=== PATIENT | male | born 2000 | race American Indian/Alaskan Native ===

== ENCOUNTER 2018-07-22 20:35 | Emergency (ER) | payer SELFPAY ==
[2018-07-22] MEDS ORDERED: NACL 0.9% 1000 ML 1,000 ML IV ONE ×2 (20:59→22:29)
[2018-07-22] MEDS ORDERED: ZOFRAN ODT PO ONE (21:15)
[2018-07-22] MEDS ORDERED: ZOFRAN ODT ONE (21:22)
[2018-07-22 21:34] LABS: Basophils % (Auto) 0.2 % (0.0-1.8); Eosinophils % (Auto) 0.1 % (0.0-4.3); Hematocrit 48.2 % (35.5-45.6); Hemoglobin 16.4 gm/dl (11.8-15.2); Lymphocytes # (Auto) 1.4 K/mm3 (1.2-5.4); Lymphocytes % (Auto) 17.3 % (13.4-35.0); Mean Corpuscular HGB Conc 34 % (32-34); Mean Corpuscular Hemoglobin 29 pg (28-32); Mean Corpuscular Volume 85 fl (84-94); Monocytes # (Auto) 0.5 K/mm3 (0.0-0.8); Monocytes % (Auto) 6.6 % (0.0-7.3); Platelet Count 308 K/mm3 (140-440); Red Blood Count 5.66 M/mm3 (3.65-5.03); Red Cell Distribution Width 14.4 % (13.2-15.2)
[2018-07-22 21:48] LABS: Alanine Aminotransferase 15 units/L (7-56); Albumin 5.1 g/dL (3.9-5); BUN/Creatinine Ratio 10; Blood Urea Nitrogen 8 mg/dL (9-20); Calcium 10.1 mg/dL (8.4-10.2); Hemolysis Index 83
[2018-07-22] MEDS ORDERED: ZOFRAN IV ONE (22:29)
[2018-07-22] MEDS ORDERED: MORPHINE IV ONE (22:29)
[2018-07-22] MEDS ORDERED: ATIVAN IV ONE (22:29)
[2018-07-22] MEDS ORDERED: BENADRYL IV ONE (22:29)
[2018-07-22] MEDS ORDERED: ZOFRAN ONE (22:32)
[2018-07-23 00:57] VITALS: BP 137/85
--- NOTE | 2018-07-23 03:53 | Emergency Department Report ---
HPI - General Chief Complaint: Abdominal Pain Time Seen by Provider: 07/22/18 22:02 - HPI HPI: The patient is a 18-year-old male presents for evaluation of abdominal pain and nausea and vomiting. The patient reports 1 day of upper abdominal pain, cramping, moderate in severity, exacerbated with retching, associated with nausea, multiple episodes of nonbilious, nonbloody emesis. He also reports associated loose watery stools for blood. The patient denies fever, chills, night sweats, chest pain, dyspnea, blood in the stool, dark tarry stool, dysuria , hematuria, flank pain, genital discharge, inability to pass flatus. ED Past Medical Hx - Past Medical History Hx Seizures: Yes - Surgical History Past Surgical History?: No - Social History Smoking Status: Current Every Day Smoker Substance Use Type: None - Medications Home Medications: Home Medications Medication Instructions Recorded Confirmed Last Taken Type Acetaminophen/Codeine [Tylenol #3] 1 tab PO Q6H PRN #14 tab 07/23/18 Unknown Rx Ondansetron [Zofran TAB] 4 mg PO Q8HR PRN #20 tablet 07/23/18 Unknown Rx ED Review of Systems ROS: Stated complaint: VOMITING BLOOD Other details as noted in HPI Constitutional: denies: fever ENT: denies: throat or neck pain Respiratory: denies: cough, shortness of breath Cardiovascular: denies: chest pain Endocrine: denies unexplained weight loss or gain Gastrointestinal: reports abdominal pain, nausea Genitourinary: denies: dysuria Musculoskeletal: denies: leg swelling Skin: denies: rash Neurological: denies: headache Hematological/Lymphatic: denies: easy bleeding or easy bruising Psych: denies sadness or hopelessness Physical Exam - Physical Exam Vital Signs: Vital Signs 07/22/18 07/22/18 07/22/18 20:49 20:56 21:54 Temperature 98.8 F 98.8 F Pulse Rate 101 H 99 H Respiratory 14 14 14 Rate Blood Pressure 148/87 148/87 Blood Pressure [Left] O2 Sat by Pulse 97 97 94 Oximetry 07/22/18 07/22/18 07/22/18 22:13 22:50 23:20 Temperature 99 F Pulse Rate 89 Respiratory 13 13 16 Rate Blood Pressure Blood Pressure 143/97 [Left] O2 Sat by Pulse 99 Oximetry Physical Exam: General: well-nourished, well-developed, no acute distress Head: Normocephalic, atraumatic Eyes: normal sclera ENT: Mucous membranes are pale and dry Neck: No neck stiffness, no cervical adenopathy Respiratory: Breath sounds equal bilaterally, no wheezing, rales, or rhonchi Cardio: S1 and S2 present, no murmurs, rubs, gallops, capillary refill is delayed Abdomen: Normoactive bowel sounds, soft abdomen, epigastric tenderness palpation present, no rigidity, no guarding or rebound tenderness Musc: No pitting edema Skin: No rash Neuro: no facial drooping, normal speech Psych: Normal affect ED Course Vital Signs 07/22/18 07/22/18 07/22/18 20:49 20:56 21:54 Temperature 98.8 F 98.8 F Pulse Rate 101 H 99 H Respiratory 14 14 14 Rate Blood Pressure 148/87 148/87 Blood Pressure [Left] O2 Sat by Pulse 97 97 94 Oximetry 07/22/18 07/22/18 07/22/18 22:13 22:50 23:20 Temperature 99 F Pulse Rate 89 Respiratory 13 13 16 Rate Blood Pressure Blood Pressure 143/97 [Left] O2 Sat by Pulse 99 Oximetry ED Medical Decision Making - Lab Data Result diagrams: 07/22/18 21:20 07/22/18 21:20 - Medical Decision Making The patient was seen and examined by myself. The patient is placed on a manager cardiac and continuous pulse ox. On initial evaluation, the patient was found to be in no distress. Evaluation orders are placed. IV access is established and the patient is given 1 L normal saline fluid bolus and Zofran for nausea, and IV analgesic for pain Lab results were non-concerning including WBC, hemoglobin, hematocrit, electrolytes, renal function, LFTs, lipase, and urinalysis. The patient was reevaluated and reported that their symptoms were markedly improved. The patient is stable for discharge with outpatient follow-up. The patient is given follow-up and return instructions. The patient expressed understanding and agreed with the plan. The patient is discharged in stable condition. Critical care attestation.: If time is entered above; I have spent that time in minutes in the direct care of this critically ill patient, excluding procedure time. ED Disposition Clinical Impression: Acute generalized abdominal pain, Dehydration, Nausea and vomiting in adult patient Disposition: DC-01 TO HOME OR SELFCARE Is pt being admited?: No Does the pt Need Aspirin: No Condition: Stable Instructions: Gastroenteritis (ED), Acute Nausea and Vomiting (ED), Food Poisoning (ED), Abdominal Pain (ED) Prescriptions: Acetaminophen/Codeine [Tylenol #3] 1 tab PO Q6H PRN #14 tab PRN Reason: Pain Ondansetron [Zofran TAB] 4 mg PO Q8HR PRN #20 tablet PRN Reason: Nausea Referrals: PRIMARY CARE, [Primary Care Provider] - 3-5 Days Time of Disposition: 00:07
== END 2018-07-23 01:05 | disposition home or self-care (01) ==
LOC: ED 20:35
DX: E86.0 Dehydration (principal); R11.2 Nausea with vomiting, unspecified; R10.84 Generalized abdominal pain; F17.200 Nicotine dependence, unspecified, uncomplicated
CPT/HCPCS: 36415; 80053; 85025; 96361; 96374; 96375; 99284; J1200; J2060; J2270; J2405; J7030; Q0162

== ENCOUNTER 2019-03-10 19:38 | Emergency (ER) | payer OTHER ==
--- NOTE | 2019-03-10 20:26 | Emergency Department Report ---
Blank Doc - Documentation Documentation: This is a 18-year-old male that presents with abdominal pain with n/v. This initial assessment/diagnostic orders/clinical plan/treatment(s) is/are subject to change based on patient's health status, clinical progression and re- assessment by fellow clinical providers in the ED. Further treatment and workup at subsequent clinical providers discretion. Patient/guardians urged not to elope from the ED as their condition may be serious if not clinically assessed and managed. Initial orders include: 1- Patient sent to [facility] for further evaluation and treatment 2- labs
[2019-03-10 20:49] LABS: Basophils % (Auto) 0.4 % (0.0-1.8); Eosinophils # (Auto) 0.1 K/mm3 (0.0-0.4); Eosinophils % (Auto) 1.8 % (0.0-4.3); Hematocrit 44.3 % (35.5-45.6); Hemoglobin 15.2 gm/dl (11.8-15.2); Lymphocytes # (Auto) 3.1 K/mm3 (1.2-5.4); Lymphocytes % (Auto) 51.2 % (13.4-35.0); Mean Corpuscular HGB Conc 34 % (32-34); Mean Corpuscular Volume 88 fl (84-94); Monocytes # (Auto) 0.7 K/mm3 (0.0-0.8); Monocytes % (Auto) 11.4 % (0.0-7.3); Platelet Count 278 K/mm3 (140-440); Red Blood Count 5.07 M/mm3 (3.65-5.03); Red Cell Distribution Width 14.1 % (13.2-15.2)
[2019-03-10 21:04] LABS: Alanine Aminotransferase 16 units/L (7-56); Albumin 4.4 g/dL (3.9-5); BUN/Creatinine Ratio 12; Blood Urea Nitrogen 11 mg/dL (9-20); Calcium 9.6 mg/dL (8.4-10.2); Hemolysis Index 11
[2019-03-10 21:05] LABS: Bilirubin,Direct < 0.2 mg/dL (0-0.2)
[2019-03-10 21:16] LABS: Bacteria,Urine 1+ /HPF (Negative); Bilirubin,Urine NEG (Negative); Blood,Urine SM (Negative); Color,Urine Yellow (Yellow); Mucus,Urine FEW /HPF; Protein,Urine <15 mg/dL mg/dL (Negative)
[2019-03-10 21:18] LABS: WBC,Urine > 182.0 /HPF (0.0-6.0)
[2019-03-10] MEDS ORDERED: XYLOCAINE 1% MPF 5 mL INFILTRATI ONE (23:57)
[2019-03-10] MEDS ORDERED: ROCEPHIN IM ONE (23:57)
[2019-03-10] MEDS ORDERED: ZITHROMAX PO ONE (23:57)
--- NOTE | 2019-03-11 00:30 | Emergency Department Report ---
ED Male HPI - General Chief complaint: Abdominal Pain Stated complaint: ABD PAIN Time Seen by Provider: 03/10/19 20:25 Source: patient Mode of arrival: Ambulatory Limitations: No Limitations - History of Present Illness Initial comments: Patient is a 18 y/o aam male who presents for urinary frequency urgency and dysuria states some abdominal pain no n/v no diarrhea no blood stools no fever or chills MD Complaint: dysuria Onset/Timin -: days(s) Location: penis Radiation: none Severity: moderate Severity scale (0 -10): 5 Quality: burning Consistency: intermittent Worsens with: urination discharge, dysuria - Related Data Sexually active: Yes Previous Rx's Medication Instructions Recorded Last Taken Type Acetaminophen/Codeine [Tylenol #3] 1 tab PO Q6H PRN #14 tab 07/23/18 Unknown Rx Ondansetron [Zofran TAB] 4 mg PO Q8HR PRN #20 tablet 07/23/18 Unknown Rx Doxycycline [Vibramycin CAP] 100 mg PO BID 10 Days #20 capsule 03/11/19 Unknown Rx Famotidine [Pepcid] 20 mg PO BID #60 tablet 03/11/19 Unknown Rx Allergies Allergy/AdvReac Type Severity Reaction Status Date / Time No Known Allergies Allergy Verified 07/22/18 21:28 ED Review of Systems ROS: Stated complaint: ABD PAIN Other details as noted in HPI Constitutional: denies: chills, fever Eyes: denies: eye pain, eye discharge, vision change ENT: denies: ear pain, throat pain Respiratory: denies: cough, shortness of breath, wheezing Cardiovascular: denies: chest pain, palpitations Endocrine: no symptoms reported Gastrointestinal: abdominal pain Genitourinary: urgency, dysuria, frequency, discharge. denies: testicular pain, testicular mass Musculoskeletal: denies: back pain, joint swelling, arthralgia Skin: denies: rash, lesions Neurological: denies: headache, weakness, paresthesias Psychiatric: denies: anxiety, depression Hematological/Lymphatic: denies: easy bleeding, easy bruising ED Past Medical Hx - Past Medical History Previous Medical History?: Yes Hx Seizures: Yes - Surgical History Past Surgical History?: No - Social History Smoking Status: Current Every Day Smoker Substance Use Type: Marijuana - Medications Home Medications: Home Medications Medication Instructions Recorded Confirmed Last Taken Type Acetaminophen/Codeine [Tylenol #3] 1 tab PO Q6H PRN #14 tab 07/23/18 Unknown Rx Ondansetron [Zofran TAB] 4 mg PO Q8HR PRN #20 tablet 07/23/18 Unknown Rx Doxycycline [Vibramycin CAP] 100 mg PO BID 10 Days #20 capsule 03/11/19 Unknown Rx Famotidine [Pepcid] 20 mg PO BID #60 tablet 03/11/19 Unknown Rx ED Physical Exam - General Limitations: No Limitations General appearance: alert, in no apparent distress - Head Head exam: Present: atraumatic, normocephalic - Eye Eye exam: Present: normal appearance, PERRL, EOMI Pupils: Present: normal accommodation - ENT ENT exam: Present: mucous membranes moist - Neck Neck exam: Present: normal inspection - Respiratory Respiratory exam: Present: normal lung sounds bilaterally. Absent: respiratory distress - Cardiovascular Cardiovascular Exam: Present: regular rate, normal rhythm. Absent: systolic murmur, diastolic murmur, rubs, gallop - GI/Abdominal GI/Abdominal exam: Present: soft, normal bowel sounds. Absent: distended, tend erness, guarding, rebound, rigid, bruit, hernia - Rectal Rectal exam: Present: deferred - Extremities Exam Extremities exam: Present: normal inspection, tenderness, normal capillary refill - Back Exam Back exam: Present: normal inspection, full ROM. Absent: tenderness, CVA tenderness (R), CVA tenderness (L), muscle spasm, rash noted - Neurological Exam Neurological exam: Present: alert, oriented X3, CN II-XII intact, normal gait - Psychiatric Psychiatric exam: Present: normal affect, normal mood - Skin Skin exam: Present: warm, dry, intact, normal color. Absent: rash ED Course Vital Signs 03/10/19 20:26 Temperature 98.4 F Pulse Rate 70 Respiratory 18 Rate Blood Pressure 119/57 O2 Sat by Pulse 95 Oximetry ED Medical Decision Making - Lab Data Result diagrams: 03/10/19 20:34 03/10/19 20:34 Labs 03/10/19 03/10/19 03/10/19 20:34 20:34 20:51 WBC 6.0 RBC 5.07 H Hgb 15.2 Hct 44.3 MCV 88 MCH 30 MCHC 34 RDW 14.1 Plt Count 278 Lymph % (Auto) 51.2 H Howard % (Auto) 11.4 H Eos % (Auto) 1.8 Baso % (Auto) 0.4 Lymph # 3.1 Howard # 0.7 Eos # 0.1 Baso # 0.0 Seg Neutrophils % 35.2 L Seg Neutrophils # 2.1 Sodium 141 Potassium 4.0 Chloride 101.0 Carbon Dioxide 30 Anion Gap 14 BUN 11 Creatinine 0.9 Estimated GFR > 60 BUN/Creatinine Ratio 12 Glucose 120 H Calcium 9.6 Total Bilirubin 0.40 Direct Bilirubin < 0.2 Indirect Bilirubin 0.2 AST 24 ALT 16 Alkaline Phosphatase 69 Total Protein 7.3 Albumin 4.4 Albumin/Globulin Ratio 1.5 Lipase 20 Urine Color Yellow Urine Turbidity Slightly-cloudy Urine pH 5.0 Ur Specific [place] 1.031 H Urine Protein <15 mg/dl Urine Glucose (UA) Neg Urine Ketones Neg Urine Blood Sm Urine Nitrite Neg Urine Bilirubin Neg Urine Urobilinogen 4.0 Ur Leukocyte Esterase Lg Urine WBC (Auto) > 182.0 H Urine RBC (Auto) 4.0 Urine Bacteria (Auto) 1+ Urine Mucus Few - Medical Decision Making Urine noted for leukocytes white blood cells this is a UTI and likely STD pt treated for same rocephin, azithromycin, dc to home with rx for doxcycline , and pepcid for GERD pt will follow up with health departement for HSV and HIV screening, follow up with pcp for GERD management, pt verbalized agreement and understanding of discharge plan. this is not a colitis flare pt is tolerating po intake no blood stools no fever no abd tenderness no pain on exam. Critical care attestation.: If time is entered above; I have spent that time in minutes in the direct care of this critically ill patient, excluding procedure time. ED Disposition Clinical Impression: STD (male) UTI (urinary tract infection) Qualifiers: Urinary tract infection type: acute cystitis Hematuria presence: without hematuria Qualified Code(s): N30.00 - Acute cystitis without hematuria Disposition: DC-01 TO HOME OR SELFCARE Is pt being admited?: No Does the pt Need Aspirin: No Condition: Stable Instructions: Sexually Transmitted Diseases (ED), Abdominal Pain (ED) Prescriptions: Famotidine [Pepcid] 20 mg PO BID #60 tablet Doxycycline [Vibramycin CAP] 100 mg PO BID 10 Days #20 capsule Referrals: [facility] [Outside] - 3-5 Days Forms: Work/School Release Form(ED) Time of Disposition: 00:42
[2019-03-11 00:54] VITALS: BP 138/92
== END 2019-03-11 00:53 | disposition home or self-care (01) ==
LOC: ED 19:38
DX: N30.00 Acute cystitis without hematuria (principal); A64 Unspecified sexually transmitted disease; F17.200 Nicotine dependence, unspecified, uncomplicated; F12.10 Cannabis abuse, uncomplicated; Z79.899 Other long term (current) drug therapy
CPT/HCPCS: 36415; 80048; 80076; 81001; 83690; 85025; 96372; 99283; J0696

== ENCOUNTER 2019-08-01 03:38 | Emergency (ER) | payer SELFPAY ==
[2019-08-01] MEDS ORDERED: MORPHINE IV ONE (03:58)
[2019-08-01] MEDS ORDERED: XYLOCAINE 1% 20 mL INFILTRATI ONE (03:58)
[2019-08-01] MEDS ORDERED: TORADOL IV ONE (03:58)
--- NOTE | 2019-08-01 04:53 | XRay Report ---
RIGHT SHOULDER 3 VIEWS INDICATION / CLINICAL INFORMATION: probable dislocation. COMPARISON: None available. FINDINGS: Humeral head is dislocated anteriorly with respect to glenoid. Post reduction films are recommended. Signer Name: Johny Douglas MD Signed: 08/01/2019 4:49 AM Workstation Name: [id number]
--- NOTE | 2019-08-01 05:21 | Emergency Department Report ---
ED Extremity Problem HPI - General Chief complaint: Extremity Injury, Upper Stated complaint: DISLOCATED SHOULDER Time Seen by Provider: 08/01/19 03:58 Source: EMS Mode of arrival: Stretcher Limitations: Physical Limitation - History of Present Illness Initial comments: Patient is a 19-year-old -[place] male who suffered a shoulder injury prior to arrival. Patient states he got home after leaving a libertarian and he slipped and fell. Patient now has pain at the right shoulder is worse with movement better with rest. Patient feels as though his shoulder dislocated which has happened before. Patient's pain is 8 out of 10 in severity. Severity scale (0 -10): 10 - Related Data Previous Rx's Medication Instructions Recorded Last Taken Type Acetaminophen/Codeine [Tylenol #3] 1 tab PO Q6H PRN #14 tab 07/23/18 Unknown Rx Ondansetron [Zofran TAB] 4 mg PO Q8HR PRN #20 tablet 07/23/18 Unknown Rx DOXYCYCLINE Hyclate [Vibramycin 100 mg PO BID 10 Days #20 capsule 03/11/19 Unknown Rx CAP] Famotidine [Pepcid] 20 mg PO BID #60 tablet 03/11/19 Unknown Rx Ibuprofen [Motrin 800 MG tab] 800 mg PO Q8HR PRN #10 tablet 08/01/19 Unknown Rx methOCARBAMOL [Robaxin TAB] 500 mg PO Q6H PRN #14 tablet 08/01/19 Unknown Rx traMADol [Ultram] 50 mg PO Q6HR PRN #12 tablet 08/01/19 Unknown Rx Allergies Allergy/AdvReac Type Severity Reaction Status Date / Time No Known Allergies Allergy Verified 07/22/18 21:28 ED Review of Systems ROS: Stated complaint: DISLOCATED SHOULDER Other details as noted in HPI Comment: All other systems reviewed and negative ED Past Medical Hx - Past Medical History Hx Seizures: Yes - Surgical History Past Surgical History?: No - Social History Smoking Status: Current Every Day Smoker Substance Use Type: Alcohol - Medications Home Medications: Home Medications Medication Instructions Recorded Confirmed Last Taken Type Acetaminophen/Codeine [Tylenol #3] 1 tab PO Q6H PRN #14 tab 07/23/18 Unknown Rx Ondansetron [Zofran TAB] 4 mg PO Q8HR PRN #20 tablet 07/23/18 Unknown Rx DOXYCYCLINE Hyclate [Vibramycin 100 mg PO BID 10 Days #20 capsule 03/11/19 Unknown Rx CAP] Famotidine [Pepcid] 20 mg PO BID #60 tablet 03/11/19 Unknown Rx Ibuprofen [Motrin 800 MG tab] 800 mg PO Q8HR PRN #10 tablet 08/01/19 Unknown Rx methOCARBAMOL [Robaxin TAB] 500 mg PO Q6H PRN #14 tablet 08/01/19 Unknown Rx traMADol [Ultram] 50 mg PO Q6HR PRN #12 tablet 08/01/19 Unknown Rx ED Physical Exam - General Limitations: Physical Limitation General appearance: alert, in no apparent distress - Head Head exam: Present: atraumatic, normocephalic - Eye Eye exam: Present: normal appearance - ENT ENT exam: Present: mucous membranes moist - Neck Neck exam: Present: normal inspection - Respiratory Respiratory exam: Present: normal lung sounds bilaterally. Absent: respiratory distress, wheezes, rales - Cardiovascular Cardiovascular Exam: Present: regular rate, normal rhythm. Absent: systolic murmur, diastolic murmur, rubs, gallop - GI/Abdominal GI/Abdominal exam: Present: soft, normal bowel sounds - Rectal Rectal exam: Present: deferred - Extremities Exam Extremities exam: Present: normal inspection - Expanded Upper Extremity Exam Right Shoulder Exam: Present: tenderness, deformity, dislocation. Absent: full ROM, swelling, abrasion, laceration, ecchymosis, erythema, tenderness over AC joint - Back Exam Back exam: Present: normal inspection - Neurological Exam Neurological exam: Present: alert, oriented X3 - Psychiatric Psychiatric exam: Present: normal affect, normal mood - Skin Skin exam: Present: warm, dry, intact, normal color. Absent: rash ED Course Vital Signs 08/01/19 08/01/19 08/01/19 04:21 04:22 04:23 Temperature 97.9 F Pulse Rate 88 Respiratory 20 20 20 Rate Blood Pressure 132/90 [Left] O2 Sat by Pulse 98 Oximetry - Orthopedic Joint Reduction Joint #1 Consent Obtained: verbal consent Time Out Performed: Yes Side: right Joint Reduction Location: shoulder Analgesia: other (cc of 2% lidocaine were placed inside of the joint capsule.) Shoulder Technique Used (if applicable): Mil Post-Reduction Neuro Exam: intact Post-Reduction Vascular Exam: intact Post Reduction X-Ray Obtained: Yes Post Reduction X-Ray Results: reduced ED Medical Decision Making - Medical Decision Making Patient's shoulder has been reduced. Patient will be referred to orthopedics for further follow-up. Critical care attestation.: If time is entered above; I have spent that time in minutes in the direct care of this critically ill patient, excluding procedure time. ED Disposition Clinical Impression: Shoulder dislocation, recurrent Qualifiers: Laterality: right Qualified Code(s): M24.411 - Recurrent dislocation, right shoulder Disposition: DC- TO HOME OR SELFCARE Is pt being admited?: No Does the pt Need Aspirin: No Condition: Stable Instructions: Shoulder Dislocation (ED) Referrals: SOFIA JETER MD [Staff Physician] - 3-5 Days Time of Disposition: 05:20
--- NOTE | 2019-08-01 05:32 | XRay Report ---
. RIGHT SHOULDER 1 VIEW INDICATION / CLINICAL INFORMATION: post reduction. COMPARISON: This exam at 4:50 AM was compared to earlier study at 4:28 AM same day FINDINGS: The humeral head has been reduced and now projects in expected position with respect to the glenoid. A Hill-Sachs impaction fracture is noted. Signer Name: Johny Douglas MD Signed: 08/01/2019 5:28 AM Workstation Name: [id number] [place]
[2019-08-01 06:08] VITALS: BP 128/84
== END 2019-08-01 06:22 | disposition home or self-care (01) ==
LOC: ED 03:38
PROC: 0RSJXZZ Reposition Right Shoulder Joint, External Approach (ICD-10-PCS; principal; 2019-08-01)
DX: M24.411 Recurrent dislocation, right shoulder (principal); F17.200 Nicotine dependence, unspecified, uncomplicated; Z79.899 Other long term (current) drug therapy
CPT/HCPCS: 23650; 73020; 73030; 96374; 96375; 99283; J1885; J2270

== ENCOUNTER 2019-11-06 06:28 | Emergency (ER) | payer SELFPAY ==
[2019-11-06] MEDS ORDERED: ONDANSETRON 4 MG/2 ML INJ IV ONE (07:05)
[2019-11-06] MEDS ORDERED: MORPHINE 4 MG/1 ML INJ IV ONE (07:05)
[2019-11-06] MEDS ORDERED: MORPHINE 2 MG/1 ML INJ ONE (07:09)
[2019-11-06] MEDS ORDERED: ONDANSETRON 4 MG/2 ML INJ ONE (07:09)
[2019-11-06] MEDS ORDERED: PROPOFOL 200 MG/20 ML VIAL IV ONE (07:10)
[2019-11-06] MEDS ORDERED: SODIUM CHLORIDE 0.9% 1000 ML 1,000 ML IV ONE (07:10)
[2019-11-06] MEDS ORDERED: KETAMINE 500 MG/5 ML VIAL MDV IV ONE (07:10)
--- NOTE | 2019-11-06 07:10 | Emergency Department Report ---
HPI - General Chief Complaint: Extremity Injury, Upper Time Seen by Provider: 11/06/19 06:58 - HPI HPI: 19-year-old male presents to the emergency department with complaint of right arm pain and suspected dislocation that occurred while he was sleeping. 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 He has not taken anything for her symptoms prior to presentation. No other past medical history. ED Past Medical Hx - Past Medical History Previous Medical History?: Yes Hx Seizures: Yes - Surgical History Past Surgical History?: No - Social History Smoking Status: Current Every Day Smoker Substance Use Type: Alcohol, Marijuana - Medications Home Medications: Home Medications Medication Instructions Recorded Confirmed Last Taken Type Acetaminophen/Codeine [Tylenol #3] 1 tab PO Q6H PRN #14 tab 07/23/18 Unknown Rx Ondansetron [Zofran TAB] 4 mg PO Q8HR PRN #20 tablet 07/23/18 Unknown Rx DOXYCYCLINE Hyclate [Vibramycin 100 mg PO BID 10 Days #20 capsule 03/11/19 Unknown Rx CAP] Famotidine [Pepcid] 20 mg PO BID #60 tablet 03/11/19 Unknown Rx Ibuprofen [Motrin 800 MG tab] 800 mg PO Q8HR PRN #10 tablet 08/01/19 Unknown Rx methOCARBAMOL [Robaxin TAB] 500 mg PO Q6H PRN #14 tablet 08/01/19 Unknown Rx traMADoL [Ultram] 50 mg PO Q6HR PRN #12 tablet 08/01/19 Unknown Rx levETIRAcetam [Keppra TAB] 500 mg PO BID #60 tablet 11/06/19 Unknown Rx ED Review of Systems ROS: Stated complaint: RIGHT SHOULDER OUT OF PLACE Other details as noted in HPI Comment: All other systems reviewed and negative Constitutional: denies: fever Respiratory: denies: shortness of breath Cardiovascular: denies: chest pain Gastrointestinal: denies: abdominal pain Musculoskeletal: arthralgia. denies: back pain Neurological: denies: numbness, paresthesias Physical Exam - Physical Exam Vital Signs: Vital Signs 11/06/19 06:42 Temperature 97.9 F Pulse Rate 92 H Respiratory 20 Rate Blood Pressure 146/93 O2 Sat by Pulse 97 Oximetry Physical Exam: GENERAL: The patient is well-developed well-nourished. HENT: Normocephalic. Atraumatic. Patient has moist mucous membranes. EYES: Extraocular motions are intact. NECK: Supple. Trachea is midline. CHEST/LUNGS: Clear to auscultation. There is no respiratory distress noted. HEART/CARDIOVASCULAR: Regular. There is no tachycardia. There is no murmur. ABDOMEN: There is no abdominal distention. SKIN: Skin is warm and dry. NEURO: The patient is awake, alert, and oriented. The patient is cooperative. The patient has no focal neurologic deficits. Normal speech. MUSCULOSKELETAL: The patient's right upper extremity is externally rotated and raised superiorly and the patient is unable to move it from this position secondary to pain. There is tenderness to palpation to the right shoulder joint. Radial pulse +2 over 4 and capillary refill less than 2 seconds to the affected right upper extremity. ED Course Vital Signs 11/06/19 06:42 Temperature 97.9 F Pulse Rate 92 H Respiratory 20 Rate Blood Pressure 146/93 O2 Sat by Pulse 97 Oximetry - Moderate Sedation Indications: fracture/dislocation redu ASA Class: I Mallampati Airway Score: 1 Time of Last PO Intake: 22:00 (last night) Preparation: nurse monitoring applied, pulse oximeter, capnometry used, supplemental O2 applied, suction/airway equipment at bedside, IV secured Ketamine: IV Ketamine Dose: 40 IV Propofol Dose (mgs): 40 Complications: none Patient Tolerated Procedure: well - Orthopedic Joint Reduction Joint #1 Consent Obtained: verbal consent, written consent Time Out Performed: Yes Side: right Joint Reduction Location: shoulder Analgesia: moderate sedation Shoulder Technique Used (if applicable): traction/counter-traction, external rotation Post-Reduction Neuro Exam: intact Post-Reduction Vascular Exam: intact Post Reduction X-Ray Obtained: Yes Post Reduction X-Ray Results: reduced Splint Applied: Yes (Shoulder immobilizer) Patient Tolerated Procedure: well ED Medical Decision Making - Radiology Data Radiology results: image reviewed interpreted by me: Initial right shoulder x-ray shows an anterior dislocation Postreduction right shoulder x-ray shows appropriate alignment of the humeral head within the glenohumeral joint. There is a Hill-Sachs deformity. - Medical Decision Making Patient presents with an anterior right shoulder dislocation that occurred while he was sleeping. He is neurovascularly intact. Initial x-ray confirms dislocation. Patient was set up for moderate sedation and had both moderate sedation and shoulder dislocation as per the procedure section's. He is placed in a shoulder immobilizer. He is both neurovascularly intact before and after the procedure. He remained in the emergency department until he was at a normal baseline mental status after the sedation. Patient has been instructed to follow-up with orthopedist for his recurrent shoulder dislocations and to remain in the shoulder immobilizer until follow-up with the orthopedist in the next few days. He was also given a loading dose of his seizure medication as he has been out for the past few days and was given a prescription for his Keppra, as well as primary care referrals. The patient has been instructed to return to the emergency Department with any worsening of his symptoms or any acute distress. - Differential Diagnosis shoulder dislocation, fracture, sprain/strain, rotator cuff injury Critical Care Time: No Critical care attestation.: If time is entered above; I have spent that time in minutes in the direct care of this critically ill patient, excluding procedure time. ED Disposition Clinical Impression: Medication refill, Hx of seizure disorder Dislocation, shoulder closed Qualifiers: Encounter type: initial encounter Laterality: right Qualified Code(s): S43.004A - Unspecified dislocation of right shoulder joint, initial encounter Disposition: - TO HOME OR SELFCARE Is pt being admited?: No Condition: Stable Instructions: Shoulder Dislocation (ED), Moderate Sedation (ED) Additional Instructions: Please follow-up with an orthopedist in the next few days regarding your recurrent shoulder dislocations. Remain in the shoulder immobilizer until follow-up with the orthopedist. Return to the emergency Department with any worsening of your symptoms or any acute distress. I am also giving you a referral for a local primary care physician and clinic to follow up regarding your seizure history and for yearly physicals. Prescriptions: levETIRAcetam [Keppra TAB] 500 mg PO BID #60 tablet Referrals: [facility] [Provider Group] - 2-3 Days [facility] [Outside] - 3-5 Days DILAN BUCKNER MD [Staff Physician] - 3-5 Days SOFIA JETER MD [Staff Physician] - 2-3 Days Time of Disposition: 08:10
--- NOTE | 2019-11-06 07:12 | XRay Report ---
RIGHT SHOULDER 1 VIEW INDICATION / CLINICAL INFORMATION: Right shoulder pain. Possible dislocation. COMPARISON: Right shoulder radiographs from 08/01/2019. FINDINGS: The lack of multiple views of the right shoulder limits this exam. BONES and JOINT(S): There is anterior dislocation of the humeral joint. No acute fracture is seen. Th e AC joint is maintained. SOFT TISSUES: No significant abnormality. ADDITIONAL FINDINGS: None. IMPRESSION: Anterior dislocation of the right shoulder. A complete right shoulder series is recommended after red uction. Signer Name: Jerrell Arnold MD Signed: 11/06/2019 7:08 AM Workstation Name: [id number]
[2019-11-06] MEDS ORDERED: levETIRAcetam 1000 MG/NS 0.75% 1,000 MG/100 ML BAG IV ONE ×2 (07:20→07:23)
[2019-11-06 08:03] VITALS: BP 184/106
--- NOTE | 2019-11-06 08:05 | XRay Report ---
RIGHT SHOULDER 1 VIEW INDICATION / CLINICAL INFORMATION: Postreduction. COMPARISON: Right shoulder radiograph from earlier today. FINDINGS: BONES and JOINT(S): Alignment of the glenohumeral joint has improved. A Hill-Sachs deformity is noted . No other acute fracture or significant arthritis is seen. SOFT TISSUES: No significant abnormality. ADDITIONAL FINDINGS: None. IMPRESSION: 1. Improved alignment of the right shoulder. 2. Hill-Sachs deformity may be related to previous shoulder dislocations and/or the patient's current injury. Signer Name: Jerrell Arnold MD Signed: 11/06/2019 8:01 AM Workstation Name: [id number]
== END 2019-11-06 09:24 | disposition home or self-care (01) ==
LOC: ED 06:28
DX: S43.004A Unspecified dislocation of right shoulder joint, initial encounter (principal); F17.200 Nicotine dependence, unspecified, uncomplicated; F12.10 Cannabis abuse, uncomplicated; Z79.899 Other long term (current) drug therapy; Z76.0 Encounter for issue of repeat prescription; X58.XXXA Exposure to other specified factors, initial encounter; Y93.89 Activity, other specified; Y92.89 Other specified places as the place of occurrence of the external cause; Y99.8 Other external cause status
CPT/HCPCS: 23650; 73020; 96365; 96375; 99284; J1953; J2270; J2405; J2704; J7030

== ENCOUNTER 2022-08-27 14:39 | Emergency (ER) | payer SELFPAY ==
[2022-08-27 14:49] VITALS: BP 133/82
--- NOTE | 2022-08-27 15:23 | XRay Report ---
CHEST 2 VIEWS INDICATION / CLINICAL INFORMATION: Chest Pain. COMPARISON: None available. FINDINGS: SUPPORT DEVICES: None. HEART / MEDIASTINUM: No significant abnormality. LUNGS / PLEURA: No significant pulmonary or pleural abnormality. No pneumothorax. ADDITIONAL FINDINGS: Mild curvature of the spine. IMPRESSION: 1. No acute findings. Signer Name: Alonzo Jones MD Signed: 08/27/2022 3:19 PM Workstation Name: [id number]
[2022-08-27 15:49] LABS: Basophils % (Auto) 0.5 % (0.0-1.8); Eosinophils % (Auto) 0.4 % (0.0-4.3); Hematocrit 43.8 % (35.5-45.6); Hemoglobin 14.7 gm/dl (11.8-15.2); Lymphocytes # (Auto) 3.1 K/mm3 (1.2-5.4); Lymphocytes % (Auto) 40.9 % (13.4-35.0); Mean Corpuscular HGB Conc 34 % (32-34); Mean Corpuscular Volume 87 fl (84-94); Monocytes # (Auto) 0.6 K/mm3 (0.0-0.8); Monocytes % (Auto) 7.8 % (0.0-7.3); Platelet Count 277 K/mm3 (140-440); Red Blood Count 5.07 M/mm3 (3.65-5.03); Red Cell Distribution Width 13.6 % (13.2-15.2)
[2022-08-27 15:57] LABS: Alanine Aminotransferase 14 units/L (7-56); Albumin 4.7 g/dL (3.9-5); BUN/Creatinine Ratio 16; Blood Urea Nitrogen 13 mg/dL (9-20); Calcium 9.1 mg/dL (8.4-10.2); Hemolysis Index 8
[2022-08-27] MEDS ORDERED: dexAMETHasone 4 MG/ML VIAL IM ONE (17:28)
[2022-08-27] MEDS ORDERED: diphenhydrAMINE 25 MG CAP PO ONE (17:28)
--- NOTE | 2022-08-27 17:30 | Emergency Department Report ---
ED General Adult HPI - General Chief complaint: Chest Pain Stated complaint: CHEST PAIN,SOB PUI?: No Time Seen by Provider: 08/27/22 17:20 Source: patient Mode of arrival: Ambulatory Limitations: No Limitations - History of Present Illness Initial comments: sob ,abdominal and cp.Pt says that he feels like he is having an allergic reaction to prednisone(cp became a symptom after he ingested prednisone at home ).dx with anxiety at [facility] -: Gradual, days(s) Consistency: intermittent Improves with: none Worsens with: none Associated Symptoms: denies: denies other symptoms, confusion, chest pain, cough Treatments Prior to Arrival: none - Related Data Previous Rx's Medication Instructions Recorded Last Taken Type Acetaminophen/Codeine [Tylenol #3] 1 tab PO Q6H PRN #14 tab 07/23/18 Unknown Rx Ondansetron [Zofran TAB] 4 mg PO Q8HR PRN #20 tablet 07/23/18 Unknown Rx DOXYCYCLINE Hyclate [Vibramycin 100 mg PO BID 10 Days #20 capsule 03/11/19 Unknown Rx CAP] Famotidine [Pepcid] 20 mg PO BID #60 tablet 03/11/19 Unknown Rx Ibuprofen [Motrin 800 MG tab] 800 mg PO Q8HR PRN #10 tablet 08/01/19 Unknown Rx methOCARBAMOL [Robaxin TAB] 500 mg PO Q6H PRN #14 tablet 08/01/19 Unknown Rx traMADoL [Ultram] 50 mg PO Q6HR PRN #12 tablet 08/01/19 Unknown Rx levETIRAcetam [Keppra TAB] 500 mg PO BID #60 tablet 11/06/19 Unknown Rx Allergies Allergy/AdvReac Type Severity Reaction Status Date / Time chocolate flavor Allergy Anaphylaxis Verified 08/27/22 14:49 ED Review of Systems ROS: Stated complaint: CHEST PAIN,SOB Other details as noted in HPI Constitutional: denies: chills, fever Eyes: denies: eye pain, eye discharge, vision change ENT: denies: ear pain, throat pain Respiratory: denies: cough, shortness of breath, wheezing Cardiovascular: denies: chest pain, palpitations Endocrine: no symptoms reported Gastrointestinal: denies: abdominal pain, nausea, diarrhea Genitourinary: denies: urgency, dysuria Musculoskeletal: denies: back pain, joint swelling, arthralgia Skin: denies: rash, lesions Neurological: denies: headache, weakness, paresthesias Psychiatric: denies: anxiety, depression Hematological/Lymphatic: denies: easy bleeding, easy bruising ED Past Medical Hx - Past Medical History Previous Medical History?: Yes Hx Hypertension: No Hx CVA: No Hx Seizures: Yes Additional medical history: colitis - Surgical History Past Surgical History?: No - Social History Smoking Status: Current Every Day Smoker Substance Use Type: Alcohol, Marijuana - Medications Home Medications: Home Medications Medication Instructions Recorded Confirmed Last Taken Type Acetaminophen/Codeine [Tylenol #3] 1 tab PO Q6H PRN #14 tab 07/23/18 Unknown Rx Ondansetron [Zofran TAB] 4 mg PO Q8HR PRN #20 tablet 07/23/18 Unknown Rx DOXYCYCLINE Hyclate [Vibramycin 100 mg PO BID 10 Days #20 capsule 03/11/19 Unknown Rx CAP] Famotidine [Pepcid] 20 mg PO BID #60 tablet 03/11/19 Unknown Rx Ibuprofen [Motrin 800 MG tab] 800 mg PO Q8HR PRN #10 tablet 08/01/19 Unknown Rx methOCARBAMOL [Robaxin TAB] 500 mg PO Q6H PRN #14 tablet 08/01/19 Unknown Rx traMADoL [Ultram] 50 mg PO Q6HR PRN #12 tablet 08/01/19 Unknown Rx levETIRAcetam [Keppra TAB] 500 mg PO BID #60 tablet 11/06/19 Unknown Rx ED Physical Exam - General Limitations: No Limitations General appearance: alert, in no apparent distress - Head Head exam: Present: atraumatic, normocephalic - Eye Eye exam: Present: normal appearance - ENT ENT exam: Present: mucous membranes moist - Neck Neck exam: Present: normal inspection - Respiratory Respiratory exam: Present: normal lung sounds bilaterally. Absent: respiratory distress - Cardiovascular Cardiovascular Exam: Present: regular rate, normal rhythm. Absent: systolic murmur, diastolic murmur, rubs, gallop - GI/Abdominal GI/Abdominal exam: Present: soft, normal bowel sounds - Rectal Rectal exam: Present: deferred - Extremities Exam Extremities exam: Present: normal inspection - Back Exam Back exam: Present: normal inspection - Neurological Exam Neurological exam: Present: alert, oriented X3 - Psychiatric Psychiatric exam: Present: normal affect, normal mood - Skin Skin exam: Present: warm, dry, intact, normal color. Absent: rash ED Course Vital Signs 08/27/22 14:46 Temperature 98.7 F Pulse Rate 85 Respiratory 18 Rate Blood Pressure 133/82 [Left] O2 Sat by Pulse 99 Oximetry ED Medical Decision Making - Lab Data Result diagrams: 08/27/22 14:58 08/27/22 14:58 - EKG Data When compared to previous EKG there are: no significant change Critical care attestation.: If time is entered above; I have spent that time in minutes in the direct care of this critically ill patient, excluding procedure time. ED Disposition Clinical Impression: Allergic reaction Disposition: 01 HOME / SELF CARE / HOMELESS Is pt being admited?: No Does the pt Need Aspirin: No Condition: Stable Instructions: Allergies, Adult, [id number]
--- NOTE | 2022-08-30 12:09 | Electrocardiograph Report ---
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
== END 2022-08-27 19:09 | disposition home or self-care (01) ==
LOC: ED 14:39
DX: T78.40XA Allergy, unspecified, initial encounter (principal); F17.200 Nicotine dependence, unspecified, uncomplicated; F12.90 Cannabis use, unspecified, uncomplicated; Z72.89 Other problems related to lifestyle; Z79.899 Other long term (current) drug therapy; Z91.018 Allergy to other foods; X58.XXXA Exposure to other specified factors, initial encounter
CPT/HCPCS: 36415; 71046; 80053; 84484; 85025; 93005; 96372; 99284; J1100; 99283